=== PATIENT | female | born 1985 | race African-American/Black ===

== ENCOUNTER 2021-07-06 23:20 | Inpatient (IN) | payer OTHER ==
[2021-07-07] MEDS ORDERED: AMPICILLIN - 2 GM in SODIUM CHLORIDE 100 ML IVPB ONE (00:35)
[2021-07-07 00:40] LABS: BASO % 0.3 % (0-2.0); EOS % 1.1 % (0-4.5); HEMATOCRIT 28.5 % (32.4-45.2); HEMOGLOBIN 9.4 GM/dL (10.7-15.3); LYMPH % 18.6 % (8-40); MCHC 33.1 g/dl (32.0-36.0); MEAN CELL VOLUME 87.6 fl (80-96); MEAN PLT VOLUME 8.6 fl (7.5-11.1); MONO % 13.5 % (3.8-10.2); NEUT % 66.5 % (42.8-82.8); PLATELET COUNT 223 10^3/uL (134-434); RBC 3.25 M/mm3 (3.60-5.2); RDW 15.2 % (11.6-15.6); WHITE BLOOD COUNT 11.2 K/mm3 (4.0-10.0)
[2021-07-07] MEDS ORDERED: ELECTROLYTE-148 SOLN 1,000 ML IV SCH (00:45)
[2021-07-07 00:58] VITALS: BMI 32.9
[2021-07-07 01:04] LABS: CALCIUM 8.6 mg/dL (8.5-10.1)
[2021-07-07 01:05] LABS: BLOOD UREA NITROGEN 8.8 mg/dL (7-18)
[2021-07-07 01:08] LABS: CREATININE 0.6 mg/dL (0.55-1.3)
[2021-07-07] MEDS: OXYTOCIN 20 UNITS in 0.9% NS 20 UNIT/1,000 ML INFUS.BAG IV SCH ×2 (01:25→11:00)
[2021-07-07] MEDS ORDERED: WITCH HAZEL 50% (TUCKS) 40 PAD/JAR PAD TP PRN (01:42)
[2021-07-07] MEDS ORDERED: METHYLERGONOVINE MALEATE 0.2 MG/1 ML AMP IM PRN (01:42)
[2021-07-07] MEDS ORDERED: ACETAMINOPHEN 325 MG TABLET (FP) PO PRN (01:42)
[2021-07-07] MEDS ORDERED: BENZOCAINE 28 GM HEMORRHOIDAL OINTMENT TP PRN (01:42)
[2021-07-07] MEDS ORDERED: BISACODYL 10 MG SUPP.RECT RC PRN (01:42)
[2021-07-07] MEDS ORDERED: BENZOCAINE 20% 57 GM BOTTLE TP PRN (01:42)
[2021-07-07] MEDS ORDERED: oxyCODONE HCL 5 MG TABLET PO PRN (01:42)
[2021-07-07 01:59] LABS: HIV INTERPRETATION NEGATIVE (NEGATIVE)
[2021-07-07] MEDS ORDERED: OXYTOCIN 20 UNITS in 0.9% NS 20 UNIT/1,000 ML INFUS.BAG IV ONE ×3 (03:19→11:02)
[2021-07-07] MEDS ORDERED: AMPICILLIN - 1 GM in SODIUM CHLORIDE 100 ML IVPB SCH (04:35)
[2021-07-07] MEDS ORDERED: PRENATAL VITAMINS W/ FOLIC ACID TABLET (FP) PO ONE (10:15)
[2021-07-07] MEDS: PRENATAL VITAMINS W/ FOLIC ACID TABLET (FP) PO SCH (10:20)
[2021-07-07 10:41] LABS: POC NITRAZINE POS
[2021-07-08 07:39] LABS: BASO % 0.5 % (0-2.0); EOS % 2.2 % (0-4.5); HEMATOCRIT 31.1 % (32.4-45.2); HEMOGLOBIN 10.7 GM/dL (10.7-15.3); LYMPH % 15.1 % (8-40); MCH 30.7 pg (25.7-33.7); MCHC 34.5 g/dl (32.0-36.0); MEAN CELL VOLUME 88.8 fl (80-96); MEAN PLT VOLUME 9.1 fl (7.5-11.1); MONO % 9.3 % (3.8-10.2); NEUT % 72.9 % (42.8-82.8); PLATELET COUNT 241 10^3/uL (134-434); RDW 15.5 % (11.6-15.6); WHITE BLOOD COUNT 10.8 K/mm3 (4.0-10.0)
[2021-07-08] MEDS: PRENATAL VITAMINS W/ FOLIC ACID TABLET (FP) PO SCH (09:55)
[2021-07-08] MEDS: IBUPROFEN 600 MG TABLET (FP) PO PRN (15:38)
[2021-07-08] MEDS ORDERED: SENNOSIDES/DOCUSATE COMBO (SENNA PLUS) TABLET (UD) PO PRN (22:00)
[2021-07-08 22:14] VITALS: PULSE 61
[2021-07-09] MEDS: IBUPROFEN 600 MG TABLET (FP) PO PRN (06:33)
[2021-07-09 08:40] VITALS: BP 115/69; TEMP 98.4
[2021-07-09] MEDS: PRENATAL VITAMINS W/ FOLIC ACID TABLET (FP) PO SCH (12:15)
== END 2021-07-09 12:45 | disposition home or self-care (01) | DRG 560 ==
LOC: JDEL 23:20 → JLDR 07-07 → J3W 07-07 12:25
PROVIDERS: ADMIT Obstetrics & Gynecology; ATTEND Obstetrics & Gynecology
PROC: 0W8NXZZ Division of Female Perineum, External Approach (ICD-10-PCS; principal; 2021-07-07)
DX: O42.02 Full-term premature rupture of membranes, onset of labor within 24 hours of rupture (principal); Z37.0 Single live birth; O99.824 Streptococcus B carrier state complicating childbirth; O70.0 First degree perineal laceration during delivery; Z3A.37 37 weeks gestation of pregnancy
CPT/HCPCS: 36415; 59409; 80048; 82962; 83986-QW; 85025; 85730; 86780; 86850; 86900; 86901; 87389; C9803; U0003; U0005